=== PATIENT | male | born 1960 | race Caucasian/White ===

== ENCOUNTER 2018-09-10 15:46 | Emergency (ER) | payer OTHER ==
[~2018-09-10] VITALS: Ht 165.1 cm; Wt 92.1 kg
[2018-09-10 16:00] VITALS: Ht 165.1 cm; Wt 92.1 kg
[2018-09-10 19:22] VITALS: BP 136/76
== END 2018-09-10 19:22 | disposition home or self-care (01) ==
LOC: ED 15:46
DX: S82.61XA Displaced fracture of lateral malleolus of right fibula, initial encounter for closed fracture (principal); X58.XXXA Exposure to other specified factors, initial encounter; Y93.89 Activity, other specified; Y92.89 Other specified places as the place of occurrence of the external cause; Y99.8 Other external cause status
CPT/HCPCS: J1885; Q0092